=== PATIENT | female | born 1995 | race Two or more races ===

== ENCOUNTER 2018-03-10 12:55 | Emergency (ER) | payer SELFPAY ==
[~2018-03-10] VITALS: Ht 152.4 cm; Wt 81.6 kg
[~2018-03-10 12:55] MED LIST: IMMITREX
[2018-03-10 13:01] VITALS: BP 117/76
== END 2018-03-10 13:06 | disposition home or self-care (01) ==
LOC: ED 13:00
DX: K02.9 Dental caries, unspecified (principal)
CPT/HCPCS: 99283

== ENCOUNTER 2018-06-23 18:29 | Emergency (ER) | payer OTHER ==
[~2018-06-23] VITALS: Ht 137.2 cm; Wt 81.8 kg
[2018-06-23 18:35] VITALS: BP 117/69
--- NOTE | 2018-06-23 19:08 | NUR ---
FIRST CONTACT WITH PT. Per pt, "I started having pain in my abdomen (RUQ) last night. I have not vomited or had diarrhea. I had my gallbladder removed. I havn't had any other surgeries. I am , very early, I don't know how far." NADN. Pt provided urine sample. Sent urine to lab. Call light within reach. Pt denies n/v/d, sob, cp, trauma, vaginal bleeding, vaginal discharge.
--- NOTE | 2018-06-23 19:16 | NUR ---
Provided report to KRISTY Alberto. All questions answered. KRISTY Alberto to assume care of pt.
[2018-06-23 19:18] LABS: BASOPHILS # (AUTO) 0.05 x10^3/uL (0-0.1); BASOPHILS % (AUTO) 1 % (0-1); EOSINOPHILS # (AUTO) 0.09 x10^3/uL (0-0.4); EOSINOPHILS % (AUTO) 1 % (1-7); LYMPHOCYTES # (AUTO) 2.24 x10^3/uL (1-3.4); LYMPHOCYTES % (AUTO) 31 % (22-44); MD NO; MEAN CORPUSCULAR HEMOGLOBIN 28.9 pg (27.0-34.8); MEAN CORPUSCULAR HGB CONC 34.2 g/dL (32.4-35.8); MEAN CORPUSCULAR VOLUME 84.3 fL (80-100); MONOCYTES # (AUTO) 0.58 x10^3/uL (0.2-0.8); MONOCYTES % (AUTO) 8 % (2-9); NEUTROPHILS # (AUTO) 4.23 x10^3/uL (1.8-6.8); NEUTROPHILS % (AUTO) 59 % (42-75); PLATELET COUNT 224 x10^3/uL (130-400); RED BLOOD COUNT 4.54 x10^6/uL (3.82-5.3); RED CELL DISTRIBUTION WIDTH 12.3 % (9.6-15.2)
[2018-06-23 19:24] LABS: MICROSCOPIC AUTO
--- NOTE | 2018-06-23 19:27 | NUR ---
ASSUMED CARE OF PT AT THIS TIME. PT AT US AT THIS TIME.
[2018-06-23 19:30] LABS: ALBUMIN 3.5 g/dL (3.4-5.0); ANION GAP 8 mmol/L (5-15); CALCIUM 8.2 mg/dL (8.5-10.1); CHLORIDE 108 mmol/L (98-107)
[2018-06-23 19:37] LABS: CULTURE INDICATED? YES
[2018-06-23 19:52] LABS: ALANINE AMINOTRANSFERASE 18 U/L (12-78); ALKALINE PHOSPHATASE 32 U/L (45-117); CREATININE 0.64 mg/dL (0.55-1.02); TOTAL PROTEIN 6.9 g/dL (6.4-8.2)
[2018-06-23 19:54] LABS: BILIRUBIN,TOTAL < 0.1 mg/dL (0.2-1.0)
--- NOTE | 2018-06-23 20:11 | NUR ---
PT BACK FROM US, AWAITING READ.
--- NOTE | 2018-06-23 20:55 | NUR ---
Patient/Caregiver given discharge instructions and they have confirmed that they understand the instructions. Patient ambulatory with steady gait.
== END 2018-06-23 20:57 | disposition home or self-care (01) ==
LOC: ED 20:10
DX: O26.891 Other specified pregnancy related conditions, first trimester (principal); Z3A.10 10 weeks gestation of pregnancy; R10.11 Right upper quadrant pain
CPT/HCPCS: 36415; 76700; 76801; 80053; 81001; 83690; 84702; 85025; 87086; 99284